=== PATIENT | female | born 1985 | race Caucasian/White ===

== ENCOUNTER 2019-03-24 16:41 | Inpatient (IN) | payer OTHER ==
[2019-03-24 17:05] LABS: #Eosinphils 0.1 thou/uL (0.0-0.7); #Lymphocytes 1.4 thou/uL (1.20-3.40); #Monocytes 0.7 thou/uL (0.11-0.59); #Neutrophils 6.6 thou/uL (1.40-6.50); %Basophils 0.3 % (0.0-1.0); %Lymphocytes 16.2 % (21.0-51.0); %Monocytes 8.1 % (0.0-10.0); %Neutrophils 74.4 % (42.0-75.0); Hemoglobin 12.9 g/dL (12.0-16.0); Mean Corpuscular HGB CONC 34.3 g/dL (32.0-36.0); Mean Corpuscular Hemoglobin 32.8 pg (27.0-31.0); Mean Corpuscular Volume 95.6 fL (78.0-98.0); Mean Platelet Volume 8.9 fL (7.4-10.4); Platelet Count 147 thou/uL (130-400); RBC Distribution Width 10.4 % (11.5-14.5); Red Blood Cell (RBC) Count 3.95 mill/uL (4.20-5.40); White Blood Cell (WBC) Count 8.9 thou/uL (4.8-10.8)
[2019-03-24 17:37] LABS: ALT (SGPT) 7 U/L (8-55); AST (SGOT) 12 U/L (5-34); Albumin 4.1 g/dL (3.5-5.0); Alkaline Phosphatase 32 U/L (40-110); Anion Gap 12 mmol/L (10-20); BUN (Urea Nitrogen) 13 mg/dL (7.0-18.7); Bilirubin, Total 0.4 mg/dL (0.2-1.2); Calc. Creatinine Clearance 0 mL/min (70-130); Calcium 9.2 mg/dL (7.8-10.44); Carbon Dioxide 24 mmol/L (22-29); Chloride 107 mmol/L (98-107); Estimated GFR-MDRD Greater than 90; Globulin 2.9 g/dL (2.4-3.5); Glucose 92 mg/dL (70-105); Lipase 15 U/L (8-78); Potassium 3.9 mmol/L (3.5-5.1); Sodium 139 mmol/L (136-145)
--- NOTE | 2019-03-24 17:42 | ULT ---
GALLBLADDER ULTRASOUND: 03/24/19 HISTORY: Right upper quadrant pain. Real time imaging of the right upper quadrant shows multiple echogenic foci with shadowing within th e gallbladder. Technologist describes a positive ultrasound Agee's sign. The common duct is 4 mm. L iver is normal in appearance. Measures 16.5 cm in length. Pancreas and right kidney are normal. IMPRESSION: Multiple cholelithiasis with a normal caliber common duct and a positive ultrasound Agee's sign. POS: [facility]
[2019-03-24 18:17] LABS: Bacteria/HPF None Seen HPF (None Seen); Bilirubin Negative (Negative); Blood, Urine 2+ (Negative); Clarity Clear (Clear); Glucose, Urine (Dipstick) Normal (Negative); Leukocyte Negative Leu/uL (Negative); Nitrite Negative (Negative); Protein, Urine (Dipstick) Negative (Neg-Trace); Squamous Epithelial 0-3 HPF (0-3); Urobilinogen Normal mg/dL (Less than 2)
[2019-03-24 18:18] LABS: Pregnancy Test - Urine (BHCG) Negative (Negative); Pregu Control Background? CLEAR/WHITE (CLR/WHITE); Pregu Control Bar Appear? YES (CONTROL BAR); Specific Gravity 1.023 (1.002-1.036)
[2019-03-24] MEDS ORDERED: Ondansetron PF 4 MG/2 ML Vial ONE (18:21)
[2019-03-24] MEDS ORDERED: Morphine 4 MG/ML VIAL ONE (18:21)
[2019-03-24] MEDS ORDERED: Ondansetron PF 4 MG/2 ML Vial IVP PRN (20:28)
[2019-03-24] MEDS ORDERED: Ondansetron ODT 4 MG TAB SL PRN (20:28)
[2019-03-24] MEDS ORDERED: Morphine 2 MG/ML SYRINGE SLOW IVP PRN (20:30)
[2019-03-24] MEDS ORDERED: Morphine 4 MG/ML VIAL SLOW IVP PRN (20:31)
[2019-03-24 20:42] VITALS: BMI 24.6
[2019-03-24] MEDS: Lactated Ringer's 1,000 ML IV SCH (21:03)
[2019-03-25] MEDS: Morphine 4 MG/ML VIAL SLOW IVP PRN ×2 (00:18→08:40)
[2019-03-25] MEDS: Ketorolac Tromethamine 30 MG/ML VIAL IVP PRN ×2 (00:23→08:38)
[2019-03-25] MEDS: Lactated Ringer's 1,000 ML IV SCH (04:19)
[2019-03-25] MEDS ORDERED: FLU VACC QS2019-20(6MOS UP)/PF 60 MCG/0.5 ML SYRINGE IM ONE (09:00)
[2019-03-25] MEDS ORDERED: Dexamethasone 20 MG/5 ML VIAL ONE (09:31)
[2019-03-25] MEDS ORDERED: Lidocaine 1% PF 5 ML VIAL ONE (09:31)
[2019-03-25] MEDS ORDERED: Ondansetron PF 4 MG/2 ML Vial ONE (09:31)
[2019-03-25] MEDS ORDERED: Rocuronium Bromide 10 MG/ML (10ML VIAL) ONE (09:31)
[2019-03-25] MEDS ORDERED: Glycopyrrolate 0.2 MG/ML 5 ML SYRINGE ONE (09:31)
[2019-03-25] MEDS ORDERED: PROPOFOL 200 MG/20 ML VIAL ONE (09:31)
[2019-03-25] MEDS ORDERED: Lidocaine 1% w/Epinephrine 1:100K 20 ML VIAL ONE (11:04)
[2019-03-25] MEDS ORDERED: Iothalamate Meglumine 60% 50 ML VIAL FS ONE (11:04)
[2019-03-25] MEDS ORDERED: Bupivacaine 0.25% HCL 30 ML VIAL ONE (11:04)
--- NOTE | 2019-03-25 11:20 | HP ---
CHIEF COMPLAINT: Upper abdominal pain. HISTORY OF PRESENT ILLNESS: This is a 33-year-old female with a known history of gallstones, who was sent to see me in the office in the next few days. She presents with severe intractable pain in the right upper quadrant, described as sharp 8/10 radiates around toward her right back, associated with fever, but no chills. She has nausea. No vomiting. No change in stools. No previous history of chronic abdominal pain. She has been taking Bentyl for it from her primary care doctor, but it is not helping. PAST MEDICAL HISTORY: She denies. PAST SURGICAL HISTORY: She denies. MEDICATIONS: Taken daily, Bentyl and Tylenol No.3. ALLERGIES: PENICILLIN. SOCIAL HISTORY: She smokes no alcohol or other drugs. REVIEW OF SYSTEMS: Ten-system review of systems is otherwise negative unless described above. PHYSICAL EXAMINATION: HEENT: Sclerae are anicteric. Oropharynx clear. NECK: No lymphadenopathy. CHEST: Clear. HEART: Regular rate. ABDOMEN: Soft, tender in the right upper quadrant with localized guarding. No rebound. No abdominal or inguinal hernias. EXTREMITIES: No ischemic or edema to extremities. LABORATORY DATA: Liver function tests normal. Hemoglobin normal. Ultrasound shows gallstones. ASSESSMENT: Acute cholecystitis. PLAN: Laparoscopic cholecystectomy. Risks, benefits, and alternatives discussed, she gave consent, we will do this today. Job ID: [id number]
[2019-03-25] MEDS ORDERED: Midazolam HCl 2 mg/2 ml Vial ONE (11:45)
[2019-03-25] MEDS ORDERED: Fentanyl 250 MCG/5 ML VIAL ONE (11:45)
[2019-03-25] MEDS ORDERED: Levofloxacin 500 mg/D5W 100 ml Premix Bag ONE (12:38)
[2019-03-25] MEDS ORDERED: Promethazine HCl 25 MG/ML VIAL IM PRN ×2 (13:53→14:43)
[2019-03-25] MEDS ORDERED: Ondansetron HCl/PF 4 MG/2 ML Vial IVP PRN (13:53)
[2019-03-25] MEDS ORDERED: HYDROmorphone 2 MG/ML VIAL SLOW IVP PRN (13:53)
[2019-03-25] MEDS ORDERED: Promethazine HCl 25 MG/ML VIAL SLOW IVP PRN (13:53)
[2019-03-25] MEDS ORDERED: Mag-Al 1200 mg/1200 mg/30 ML UDCUP PO PRN (14:43)
[2019-03-25] MEDS ORDERED: hydrALAZINE 20 MG/ML VIAL SLOW IVP PRN (14:43)
[2019-03-25] MEDS ORDERED: Ondansetron PF 4 MG/2 ML Vial IVP PRN (14:43)
[2019-03-25] MEDS ORDERED: D5 1/2 NS w/20 mEq KCL 1,000 ML IV SCH (14:43)
[2019-03-25] MEDS ORDERED: Calcium Carbonate 500 MG ChewTAB PO PRN (14:43)
[2019-03-25] MEDS ORDERED: Dextrose 5% in Water 1,000 ML IV PRN (14:43)
[2019-03-25] MEDS ORDERED: Dextrose 50% Abboject 50 ML SYRINGE SLOW IVP PRN (14:43)
[2019-03-25] MEDS ORDERED: HYDROcodone/Acetaminophen 10/325 mg Tablet PO PRN (14:43)
[2019-03-25] MEDS ORDERED: Morphine 4 MG/ML VIAL SLOW IVP PRN (14:43)
[2019-03-25] MEDS ORDERED: Morphine 2 MG/ML SYRINGE SLOW IVP PRN (14:43)
[2019-03-25 18:24] VITALS: BP 100/58; TEMP 98.1
[2019-03-25] MEDS ORDERED: Famotidine/PF 20 mg/2ml Vial SLOW IVP SCH (21:00)
[2019-03-25] MEDS ORDERED: Famotidine 20 MG TAB PO SCH (21:00)
--- NOTE | 2019-03-26 14:35 | DIS ---
DATE OF ADMISSION: 03/24/2019 DATE OF DISCHARGE: 03/25/2019 ADMITTING DIAGNOSIS: Acute cholecystitis. DISCHARGE DIAGNOSIS: Acute cholecystitis. PROCEDURE PERFORMED: Laparoscopic cholecystectomy. by Dr. Alcazar without complication. CONDITION DISCHARGE: Improved. HOSPITAL COURSE: See hospital chart for details of hospitalization. Job ID: [id number]
--- NOTE | 2019-03-26 14:35 | OP ---
DATE OF PROCEDURE: 03/25/2019 PREOPERATIVE DIAGNOSIS: Acute cholecystitis. POSTOPERATIVE DIAGNOSIS: Acute cholecystitis. PROCEDURE PERFORMED: Laparoscopic cholecystectomy. ANESTHESIA: General. COMPLICATIONS: None. SPECIMEN: Gallbladder. FINDINGS: Acute cholecystitis. PROCEDURE IN DETAIL: The patient was taken to the operating room and laid supine on the operating room table. After general anesthetic was obtained, the abdomen was prepped and draped in a sterile fashion. A curved incision was made below the umbilicus. Cautery was used to dissect down to the umbilical fascia. Umbilical fascia was incised and held up using a Migdalia. The abdominal cavity was entered using a Antionette clamp. Holding stitch of Vicryl was placed on each side of the fascia. Braga trocar was placed. High-flow pneumoperitoneum was obtained. An upper midline 5 mm port and 2 right upper quadrant 5 mm ports were placed under direct camera visualization. The gallbladder was retracted from the gallbladder fossa. The peritoneum of the gallbladder was opened anteriorly and posteriorly. The critical view triangle was seen showing only the cystic duct and cystic artery branching from medial to lateral. There were no other branching structures. Two clips were placed proximally on the cystic duct and one laterally. It was cut using laparoscopic scissors. The cystic artery was taken in the same way. Electrocautery was then used to dissect the gallbladder out of the gallbladder fossa. The gallbladder was placed in an Endo catch bag and brought out through the Braga. There was no bleeding or bile in the liver bed. The cystic duct stump and cystic artery stump were intact, without evidence of extravasation or bleeding. All port sites were infiltrated using local anesthesia. All ports were removed under camera visualization. Pneumoperitoneum was let down. The Vicryl was used to close the fascial defect below the umbilicus. All incisions were irrigated and closed using 4-0 Monocryl and Dermabond. The patient was en route to Recovery in stable condition. All instrument counts, needle counts and lap counts were correct. Job ID: [id number]
== END 2019-03-25 18:49 | disposition home or self-care (01) | DRG 419 ==
LOC: ERS 16:41 → 3SE 20:27
PROVIDERS: ADMIT Surgery; ATTEND Surgery
PROC: 0FT44ZZ Resection of Gallbladder, Percutaneous Endoscopic Approach (ICD-10-PCS; principal; 2019-03-25)
DX: K80.00 Calculus of gallbladder with acute cholecystitis without obstruction (principal); Z88.0 Allergy status to penicillin; F17.200 Nicotine dependence, unspecified, uncomplicated
CPT/HCPCS: 36415; 76705; 80053; 81003; 81015; 81025; 83690; 85025; 88304; 96374; 96375; J1100; J1885; J1956; J2001; J2250; J2270; J2405; J2704; J3010; S0020